=== PATIENT | male | born 1990 | race Caucasian/White ===

== ENCOUNTER 2020-08-20 13:42 | Emergency (ER) | payer SELFPAY ==
[2020-08-20 14:00] VITALS: BMI 68.9
[2020-08-20] MEDS ORDERED: ACETAMINOPHEN 1000 MG/100 ML VIAL (NON FORMULARY) IVPB ONE (14:34)
[2020-08-20] MEDS ORDERED: METOCLOPRAMIDE HCL INJECTION 10 MG/2 ML VIAL IVPB ONE (14:34)
[2020-08-20] MEDS ORDERED: ACETAMINOPHEN INJECTION 100 ML IVPB ONE (14:36)
[2020-08-20] MEDS ORDERED: METOCLOPRAMIDE HCL INJECTION 10 MG/2 ML VIAL ONE (14:36)
[2020-08-20 15:16] LABS: BASO % 0.2 % (0-2.0); HEMATOCRIT 40.8 % (35.4-49); HEMOGLOBIN 13.5 GM/dL (11.7-16.9); LYMPH % 24.2 % (8-40); MCH 29.9 pg (25.7-33.7); MCHC 33.1 g/dl (32.0-35.9); MEAN CELL VOLUME 90.2 fl (80-96); MEAN PLT VOLUME 9.2 fl (7.5-11.1); MONO % 8.3 % (3.8-10.2); NEUT % 66.3 % (42.8-82.8); PLATELET COUNT 301 K/MM3 (134-434); RBC 4.52 M/mm3 (4.00-5.60); RDW 14.4 % (11.9-15.9); WHITE BLOOD COUNT 7.3 K/mm3 (4.0-10.0)
[2020-08-20 15:35] LABS: CHLORIDE 106 mmol/L (98-107); POTASSIUM 3.6 mmol/L (3.5-5.1); SODIUM 139 mmol/L (136-145)
[2020-08-20] MEDS ORDERED: MECLIZINE HCL 25 MG TABLET (FP) PO ONE (15:37)
[2020-08-20 15:38] LABS: ALBUMIN 3.8 g/dl (3.4-5.0); ANION GAP 7 MMOL/L (8-16); BLOOD UREA NITROGEN 10.2 mg/dL (7-18); CO2 26 mmol/L (21-32); GLUCOSE,RANDOM 78 mg/dL (74-106); LIPASE 63 U/L (73-393)
[2020-08-20 15:41] LABS: SGOT/AST 17 U/L (15-37); SGPT/ALT 32 U/L (13-61)
[2020-08-20 15:42] LABS: BILIRUBIN,TOTAL 0.4 mg/dL (0.2-1)
[2020-08-20 15:43] LABS: CREATININE 0.6 mg/dL (0.55-1.3); TOT PROT 7.1 g/dl (6.4-8.2)
[2020-08-20 15:44] LABS: ALK PHOS 91 U/L (45-117)
[2020-08-20 15:46] LABS: N-TERMINAL BNP 59.9 pg/ml (5-125)
[2020-08-20] MEDS ORDERED: MECLIZINE HCL 25 MG TABLET (FP) ONE (16:58)
[2020-08-20 17:42] VITALS: BP 162/101; PULSE 63; TEMP 97.7
== END 2020-08-20 17:41 | disposition home or self-care (01) ==
LOC: JER 13:42
PROC: 3E0333Z Introduction of Anti-inflammatory into Peripheral Vein, Percutaneous Approach (ICD-10-PCS; principal; 2020-08-20)
PROC: 3E033GC Introduction of Other Therapeutic Substance into Peripheral Vein, Percutaneous Approach (ICD-10-PCS; 2020-08-20)
DX: R42 Dizziness and giddiness (principal); R51.9 Headache, unspecified; I10 Essential (primary) hypertension
CPT/HCPCS: 36415; 70450-TC; 71046-TC-FY; 80053; 82550; 82553; 83690; 83880; 84484; 85025; 93005; 93010; 99285-25; J0131

== ENCOUNTER 2024-03-01 18:06 | Inpatient (IN) | payer BC ==
[2024-03-01 19:10] LABS: BASO % 0.4 % (0-2.0); EOS % 2.3 % (0-4.5); HEMATOCRIT 41.6 % (35.4-49); HEMOGLOBIN 13.5 GM/dL (11.7-16.9); LYMPH % 13.3 % (8-40); MCH 29.5 pg (25.7-33.7); MCHC 32.3 g/dl (32.0-35.9); MEAN CELL VOLUME 91.3 fl (80-96); MEAN PLT VOLUME 8.4 fl (7.5-11.1); MONO % 15.8 % (3.8-10.2); NEUT % 68.2 % (42.8-82.8); PLATELET COUNT 219 10^3/uL (134-434); RBC 4.56 M/mm3 (4.00-5.60); RDW 16.1 % (11.9-15.9); WHITE BLOOD COUNT 6.2 K/mm3 (4.0-10.0)
[2024-03-01 19:36] LABS: POTASSIUM 3.7 mmol/L (3.5-5.1)
[2024-03-01 19:37] LABS: CALCIUM 8.8 mg/dL (8.5-10.1)
[2024-03-01 19:38] LABS: ALBUMIN 3.5 g/dl (3.4-5.0); BLOOD UREA NITROGEN 11.7 mg/dL (7-18)
[2024-03-01 19:41] LABS: CREATININE 0.9 mg/dL (0.55-1.3)
[2024-03-01 19:43] LABS: BILIRUBIN,TOTAL 0.9 mg/dL (0.2-1); TOT PROT 6.6 g/dl (6.4-8.2)
[2024-03-01 20:59] LABS: VENOUS BASE EXCESS 3.7 mmol/L (-2-2); VENOUS O2 SATURATION 96.7 % (70-80); VENOUS PCO2 47.4 mmHg (38-52); VENOUS PH 7.408 (7.310-7.410)
[2024-03-02] MEDS: FUROSEMIDE 40 MG/4 ML INJECTABLE VIAL IVPUSH ONE (01:07)
[2024-03-02] MEDS: ACETAMINOPHEN 325 MG TABLET (FP) PO ONE (01:54)
[2024-03-02] MEDS: DEXAMETHASONE 4 MG TABLET (FP) PO SCH (02:08)
[2024-03-02] MEDS ORDERED: DEXAMETHASONE SOD PHOSPHATE 10 MG/1 ML VIAL ONE (02:10)
[2024-03-02] MEDS: LOSARTAN POTASSIUM 50 MG TABLET PO ONE (02:19)
[2024-03-02] MEDS: ALBUTEROL SO4 HFA INHALER IH SCH ×2 (02:19→08:53)
[2024-03-02] MEDS: DEXAMETHASONE 4 MG TABLET (FP) PO ONE (02:19)
[2024-03-02] MEDS ORDERED: LABETALOL HCL 20 MG/4 ML VIAL ONE (03:00)
[2024-03-02] MEDS: LABETALOL HCL 5 MG/1 ML (100MG/20 ML VIAL) IVPUSH ONE (03:05)
[2024-03-02] MEDS ORDERED: FUROSEMIDE 40 MG/4 ML INJECTABLE VIAL ONE (06:00)
[2024-03-02] MEDS: FUROSEMIDE 40 MG/4 ML INJECTABLE VIAL IVPUSH SCH (06:10)
[2024-03-02 06:38] LABS: BASO % 0.3 % (0-2.0); EOS % 0.2 % (0-4.5); HEMATOCRIT 46.1 % (35.4-49); HEMOGLOBIN 15.3 GM/dL (11.7-16.9); LYMPH % 4.9 % (8-40); MCHC 33.2 g/dl (32.0-35.9); MEAN CELL VOLUME 90.3 fl (80-96); MEAN PLT VOLUME 8.8 fl (7.5-11.1); MONO % 4.2 % (3.8-10.2); NEUT % 90.4 % (42.8-82.8); PLATELET COUNT 233 10^3/uL (134-434); RDW 16.1 % (11.9-15.9)
[2024-03-02 06:41] LABS: ARTERIAL BLD GAS O2 SATURATION 97.1 % (95-98); ARTERIAL BLOOD GAS BASE EXCESS 2.8 mmol/L (-2-2); ARTERIAL BLOOD GAS PO2 95.4 mmHg (80-100); ARTERIAL BLOOD GAS pH 7.384 (7.350-7.450)
[2024-03-02 06:49] LABS: POTASSIUM 3.5 mmol/L (3.5-5.1)
[2024-03-02 06:51] LABS: BLOOD UREA NITROGEN 8.8 mg/dL (7-18); CALCIUM 8.9 mg/dL (8.5-10.1)
[2024-03-02 06:51] LABS: ALLENS TEST POSITIVE
[2024-03-02 06:54] LABS: CREATININE 0.9 mg/dL (0.55-1.3)
[2024-03-02 06:55] LABS: PHOSPHOROUS 2.8 mg/dL (2.5-4.9)
[2024-03-02 06:56] LABS: BILIRUBIN,TOTAL 1.1 mg/dL (0.2-1); TOT PROT 7.1 g/dl (6.4-8.2)
[2024-03-02] MEDS ORDERED: ALBUTEROL SO4 HFA INHALER IH ONE (08:44)
[2024-03-02] MEDS ORDERED: NIFEdipine E.R. 30 MG TABLET PO ONE (10:31)
[2024-03-02] MEDS ORDERED: ENOXAPARIN NA (PORCINE) 40 MG/0.4 ML DISP.SYRIN SQ ONE (10:31)
[2024-03-02] MEDS: ENOXAPARIN NA (PORCINE) 40 MG/0.4 ML DISP.SYRIN SQ SCH ×2 (10:38→21:33)
[2024-03-02] MEDS: NIFEdipine E.R. 30 MG TABLET PO SCH (10:38)
[2024-03-02] MEDS: REMDESIVIR 200 MG in SODIUM CHLORIDE 250 ML IVPB ONE (10:50)
[2024-03-02] MEDS: NYSTATIN POWDER 100,000 UNITS/GM - 15 GM TOPICAL POWDER TP SCH ×2 (15:54→21:35)
[2024-03-02] MEDS: CLOTRIMAZOLE 1% CREAM TP SCH (21:44)
[2024-03-03 07:56] LABS: POTASSIUM 3.7 mmol/L (3.5-5.1)
[2024-03-03 08:02] LABS: CALCIUM 9.3 mg/dL (8.5-10.1)
[2024-03-03 08:03] LABS: ALBUMIN 3.6 g/dl (3.4-5.0)
[2024-03-03 08:05] LABS: BILIRUBIN,TOTAL 0.8 mg/dL (0.2-1); TOT PROT 6.8 g/dl (6.4-8.2)
[2024-03-03 08:06] LABS: CREATININE 1.5 mg/dL (0.55-1.3)
[2024-03-03 08:19] LABS: BASO % 0.1 % (0-2.0); EOS % 0.1 % (0-4.5); HEMATOCRIT 44.8 % (35.4-49); HEMOGLOBIN 15.4 GM/dL (11.7-16.9); LYMPH % 8.6 % (8-40); MCH 30.6 pg (25.7-33.7); MCHC 34.4 g/dl (32.0-35.9); MEAN CELL VOLUME 89.1 fl (80-96); MONO % 13.2 % (3.8-10.2); PLATELET COUNT 250 10^3/uL (134-434); RBC 5.03 M/mm3 (4.00-5.60); RDW 15.9 % (11.9-15.9); WHITE BLOOD COUNT 7.8 K/mm3 (4.0-10.0)
[2024-03-03] MEDS: metoPROLOL SUCCINATE 25 MG TAB.SR.24H (FP) PO SCH (09:43)
[2024-03-03] MEDS: ASPIRIN COATED 81 MG TABLET.EC PO SCH (09:43)
[2024-03-03] MEDS: LOSARTAN POTASSIUM 50 MG TABLET PO SCH (09:44)
[2024-03-03] MEDS: REMDESIVIR 100 MG in SODIUM CHLORIDE 250 ML IVPB SCH (09:44)
[2024-03-03] MEDS ORDERED: REMDESIVIR 100 MG in SODIUM CHLORIDE 250 ML IVPB SCH (10:00)
[2024-03-03 17:23] VITALS: BMI 66.6
[2024-03-03 21:44] LABS: PH,URINE 5.5 (5.0-8.0); URINE APPEARANCE CLOUDY; URINE BILIRUBIN NEGATIVE (NEGATIVE); URINE COLOR YELLOW; URINE GLUCOSE (UA) NEGATIVE (NEGATIVE); URINE KETONE NEGATIVE (NEGATIVE); URINE LEUK ESTERASE NEGATIVE (NEGATIVE); URINE NITRITE NEGATIVE (NEGATIVE); URINE PROTEIN TRACE (NEGATIVE)
[2024-03-04 07:27] LABS: POTASSIUM 3.7 mmol/L (3.5-5.1)
[2024-03-04 07:35] LABS: BASO % 0.1 % (0-2.0); EOS % 0.1 % (0-4.5); HEMOGLOBIN 14.7 GM/dL (11.7-16.9); LYMPH % 14.4 % (8-40); MCH 30.3 pg (25.7-33.7); MCHC 33.4 g/dl (32.0-35.9); MEAN CELL VOLUME 90.7 fl (80-96); MEAN PLT VOLUME 9.1 fl (7.5-11.1); MONO % 10.2 % (3.8-10.2); NEUT % 75.2 % (42.8-82.8); PLATELET COUNT 256 10^3/uL (134-434); RBC 4.86 M/mm3 (4.00-5.60); WHITE BLOOD COUNT 8.6 K/mm3 (4.0-10.0)
[2024-03-04 07:36] LABS: CALCIUM 9.4 mg/dL (8.5-10.1)
[2024-03-04 07:37] LABS: ALBUMIN 3.5 g/dl (3.4-5.0); BLOOD UREA NITROGEN 44.6 mg/dL (7-18)
[2024-03-04 07:40] LABS: CREATININE 1.6 mg/dL (0.55-1.3); PHOSPHOROUS 4.7 mg/dL (2.5-4.9)
[2024-03-04 07:41] LABS: BILIRUBIN,TOTAL 0.9 mg/dL (0.2-1); TOT PROT 6.4 g/dl (6.4-8.2)
[2024-03-04 21:46] VITALS: RESP 18
[2024-03-05 07:10] LABS: BASO % 0.4 % (0-2.0); EOS % 0.1 % (0-4.5); HEMATOCRIT 44.4 % (35.4-49); HEMOGLOBIN 14.7 GM/dL (11.7-16.9); LYMPH % 20.2 % (8-40); MCHC 33.1 g/dl (32.0-35.9); MEAN CELL VOLUME 90.7 fl (80-96); MEAN PLT VOLUME 8.8 fl (7.5-11.1); MONO % 10.8 % (3.8-10.2); NEUT % 68.5 % (42.8-82.8); PLATELET COUNT 263 10^3/uL (134-434); RBC 4.89 M/mm3 (4.00-5.60); RDW 15.9 % (11.9-15.9); WHITE BLOOD COUNT 8.1 K/mm3 (4.0-10.0)
[2024-03-05 07:23] LABS: POTASSIUM 3.8 mmol/L (3.5-5.1)
[2024-03-05 07:30] LABS: ALBUMIN 3.5 g/dl (3.4-5.0); BLOOD UREA NITROGEN 43.2 mg/dL (7-18); CALCIUM 9.6 mg/dL (8.5-10.1); MAGNESIUM 2.2 mg/dL (1.8-2.4)
[2024-03-05 07:33] LABS: CREATININE 1.1 mg/dL (0.55-1.3)
[2024-03-05 07:35] LABS: BILIRUBIN,TOTAL 1.1 mg/dL (0.2-1); TOT PROT 6.6 g/dl (6.4-8.2)
[2024-03-06 07:15] LABS: BASO % 0.3 % (0-2.0); EOS % 0.6 % (0-4.5); HEMATOCRIT 42.1 % (35.4-49); HEMOGLOBIN 13.9 GM/dL (11.7-16.9); LYMPH % 23.1 % (8-40); MCH 29.8 pg (25.7-33.7); MEAN CELL VOLUME 90.3 fl (80-96); MEAN PLT VOLUME 8.5 fl (7.5-11.1); MONO % 11.6 % (3.8-10.2); NEUT % 64.4 % (42.8-82.8); PLATELET COUNT 247 10^3/uL (134-434); RBC 4.66 M/mm3 (4.00-5.60); RDW 15.9 % (11.9-15.9)
[2024-03-06 07:35] LABS: POTASSIUM 3.7 mmol/L (3.5-5.1)
[2024-03-06 07:41] LABS: ALBUMIN 3.4 g/dl (3.4-5.0); BLOOD UREA NITROGEN 35.4 mg/dL (7-18); CALCIUM 9.2 mg/dL (8.5-10.1)
[2024-03-06 07:42] LABS: MAGNESIUM 2.3 mg/dL (1.8-2.4)
[2024-03-06 07:45] LABS: BILIRUBIN,TOTAL 1.2 mg/dL (0.2-1); PHOSPHOROUS 3.4 mg/dL (2.5-4.9); TOT PROT 6.3 g/dl (6.4-8.2)
[2024-03-06 11:50] VITALS: BP 139/90; PULSE 51; TEMP 97.7
== END 2024-03-06 12:03 | disposition home or self-care (01) | DRG 177 ==
LOC: JER 18:06 → JERBED 23:36 → J4W 03-02 11:56
PROVIDERS: ADMIT Internal Medicine; ATTEND Internal Medicine
PROC: XW033E5 Introduction of Remdesivir Anti-infective into Peripheral Vein, Percutaneous Approach, New Technology Group 5 (ICD-10-PCS; principal; 2024-03-01)
DX: U07.1 COVID-19 (principal); J96.01 Acute respiratory failure with hypoxia; J96.02 Acute respiratory failure with hypercapnia; I16.1 Hypertensive emergency; I24.89 Other forms of acute ischemic heart disease; Z68.44 Body mass index [BMI] 60.0-69.9, adult; N17.9 Acute kidney failure, unspecified; I10 Essential (primary) hypertension; E66.01 Morbid (severe) obesity due to excess calories; B35.3 Tinea pedis; I16.0 Hypertensive urgency; I50.9 Heart failure, unspecified
CPT/HCPCS: 0241U-QW; 36415; 36600; 71045-TC-FY; 76775-TC; 76856-TC; 80048; 80053; 80061; 81003; 82043; 82570; 82803; 82962; 83735; 83880; 84100; 84484; 85025; 85651; 86140; 93005; 93010; 93306-TC; 94660; 99285-25; J0248